=== PATIENT | female | born 1970 | race Two or more races ===

== ENCOUNTER 2017-06-18 17:32 | Emergency (ER) | payer OTHER, MEDICAID ==
[~2017-06-18] VITALS: Ht 152.4 cm; Wt 74.9 kg
[2017-06-18] MEDS ORDERED: MORPHINE SULFATE 4 MG/ML, 1ML IVPush PRN (18:00)
[2017-06-18] MEDS ORDERED: SODIUM CHLORIDE FLUSH 10ML SYR IVF ONE (18:00)
[2017-06-18] MEDS ORDERED: ONDANSETRON ODT 4 MG PO ONE (18:00)
[2017-06-18 18:06] LABS: BASOPHILS # (AUTO) 0.17 x10^3/uL (0-0.1); BASOPHILS % (AUTO) 1 % (0-1); EOSINOPHILS # (AUTO) 0.26 x10^3/uL (0-0.4); EOSINOPHILS % (AUTO) 2 % (1-7); LYMPHOCYTES # (AUTO) 2.46 x10^3/uL (1-3.4); LYMPHOCYTES % (AUTO) 17 % (22-44); MD NO; MEAN CORPUSCULAR VOLUME 91.4 fL (80-100); MEAN PLATELET VOLUME 8.8 fL (7.4-10.4); MONOCYTES # (AUTO) 1.18 x10^3/uL (0.2-0.8); MONOCYTES % (AUTO) 8 % (2-9); NEUTROPHILS % (AUTO) 73 % (42-75); PLATELET COUNT 282 x10^3/uL (130-400); RED BLOOD COUNT 4.18 x10^6/uL (3.82-5.3); RED CELL DISTRIBUTION WIDTH 13.3 % (9.6-15.2)
[2017-06-18 18:07] LABS: MICROSCOPIC NOT IND
[2017-06-18 18:09] LABS: CULTURE INDICATED? NO
[2017-06-18 18:17] LABS: ALANINE AMINOTRANSFERASE 26 U/L (12-78); ALBUMIN 3.6 g/dL (3.4-5.0); ANION GAP 6 mmol/L (5-15); CALCIUM 8.6 mg/dL (8.5-10.1); CHLORIDE 110 mmol/L (98-107); CREATININE 0.78 mg/dL (0.55-1.02)
[2017-06-18 18:19] LABS: ALKALINE PHOSPHATASE 96 U/L (45-117); BILIRUBIN,TOTAL 0.3 mg/dL (0.2-1.0); TOTAL PROTEIN 7.5 g/dL (6.4-8.2)
[2017-06-18] MEDS ORDERED: CIPROFLOXACIN 500 MG TABLET PO ONE (20:00)
[2017-06-18] MEDS ORDERED: METRONIDAZOLE PMX 500MG/100ML 100 ML IVPB ONE (20:00)
[2017-06-18] MEDS ORDERED: CIPROFLOXACIN 500 MG TABLET ONE (20:12)
[2017-06-18] MEDS ORDERED: METRONIDAZOLE PMX 500MG/100ML 100 ML ONE (20:12)
[2017-06-18] MEDS ORDERED: OMNIPAQUE 350 MG/ML, 100ML BOTTLE ONE (20:17)
[2017-06-18] MEDS ORDERED: MORPHINE SULFATE 4 MG/ML, 1ML ONE (20:23)
[2017-06-18] MEDS ORDERED: ONDANSETRON ODT 4 MG ONE (20:23)
[2017-06-18 20:30] VITALS: BP 139/82
== END 2017-06-18 21:24 | disposition home or self-care (01) ==
LOC: ED 18:21
DX: K57.32 Diverticulitis of large intestine without perforation or abscess without bleeding (principal)
CPT/HCPCS: 36415; 74177; 80053; 81003; 85025; 96365; 96375; 99285; Q0162; Q9967

== ENCOUNTER 2018-07-14 08:09 | Inpatient (IN) | payer OTHER, MEDICAID ==
[~2018-07-14] VITALS: Ht 160 cm; Wt 77.0 kg
--- NOTE | 2018-07-14 08:22 | NUR ---
THIS IS A 47 YEAR OLD FEMALE WHO C/O OF RIGHT LOWER ABD PAIN. PT CRYING, STATES IT STARTED LAST NIGHT WITH NAUSEA. FAMILY AT BS.
[2018-07-14] MEDS ORDERED: MORPHINE SULFATE 4 MG/ML, 1ML ONE (08:32)
[2018-07-14] MEDS ORDERED: ONDANSETRON 2MG/ML, 2ML ONE ×2 (08:32→13:16)
[2018-07-14] MEDS ORDERED: FAMOTIDINE 20 MG/2 ML ONE (08:35)
[2018-07-14 08:46] LABS: BASOPHILS # (AUTO) 0.03 x10^3/uL (0-0.1); BASOPHILS % (AUTO) 0 % (0-1); EOSINOPHILS # (AUTO) 0.13 x10^3/uL (0-0.4); EOSINOPHILS % (AUTO) 1 % (1-7); LYMPHOCYTES # (AUTO) 2.72 x10^3/uL (1-3.4); LYMPHOCYTES % (AUTO) 24 % (22-44); MD NO; MEAN CORPUSCULAR HEMOGLOBIN 30.4 pg (27.0-34.8); MEAN CORPUSCULAR HGB CONC 33.3 g/dL (32.4-35.8); MEAN CORPUSCULAR VOLUME 91.2 fL (80-100); MEAN PLATELET VOLUME 8.8 fL (7.4-10.4); MONOCYTES # (AUTO) 0.54 x10^3/uL (0.2-0.8); MONOCYTES % (AUTO) 5 % (2-9); NEUTROPHILS # (AUTO) 8.16 x10^3/uL (1.8-6.8); NEUTROPHILS % (AUTO) 71 % (42-75); PLATELET COUNT 343 x10^3/uL (130-400); RED BLOOD COUNT 4.55 x10^6/uL (3.82-5.3); RED CELL DISTRIBUTION WIDTH 13.2 % (9.6-15.2)
--- NOTE | 2018-07-14 08:48 | NUR ---
MEDICATED PER ORDERS, CALMING DOWN, ULTRA SOUND IN ROOM. REPORT TO MICHAEL RN, PLAN OF CARE DISCUSSED
[2018-07-14] MEDS ORDERED: MORPHINE SULFATE 4 MG/ML, 1ML IVPush PRN (09:00)
[2018-07-14] MEDS ORDERED: SODIUM CHLORIDE FLUSH 10ML SYR IVF ONE (09:00)
[2018-07-14] MEDS ORDERED: ONDANSETRON 2MG/ML, 2ML IVPush ONE (09:00)
[2018-07-14] MEDS ORDERED: FAMOTIDINE 20 MG/2 ML IVP ONE (09:00)
--- NOTE | 2018-07-14 09:01 | NUR ---
ASSUMED CARE. BEDSIDE ULTRASOUND COMPLETED AND PT UP TO BATHROOM TO PROVIDE URINE SAMPLE. PT CONTINUES TO HAVE ABDOMINAL PAIN DESPITE MORPHINE.
[2018-07-14 09:11] LABS: ALANINE AMINOTRANSFERASE 35 U/L (12-78); ALBUMIN 4.4 g/dL (3.4-5.0); ANION GAP 9 mmol/L (5-15); CALCIUM 9.5 mg/dL (8.5-10.1); CHLORIDE 109 mmol/L (98-107); CREATININE 0.82 mg/dL (0.55-1.02)
[2018-07-14] MEDS ORDERED: HYDROmorphone 1 MG/ML, 1ML VIAL ONE (09:14)
[2018-07-14 09:16] LABS: ALKALINE PHOSPHATASE 114 U/L (45-117); BILIRUBIN,TOTAL 0.2 mg/dL (0.2-1.0); TOTAL PROTEIN 8.2 g/dL (6.4-8.2)
[2018-07-14] MEDS ORDERED: DIPHENHYDRAMINE 50 MG/ML, 1ML ONE (09:16)
[2018-07-14] MEDS ORDERED: PROMETHAZINE 25 MG/ML, 1ML ONE (09:16)
[2018-07-14] MEDS: HYDROmorphone 2 MG/ML, 1ML IVPush PRN ×2 (09:22→11:10)
[2018-07-14] MEDS ORDERED: PROMETHAZINE 25 MG/ML, 1ML IM ONE (09:30)
[2018-07-14] MEDS ORDERED: DIPHENHYDRAMINE 50 MG/ML, 1ML IVPush ONE (09:30)
--- NOTE | 2018-07-14 09:31 | NUR ---
PT WRETCHING, MOANING WITH PAIN AND RUBBING STOMACH. ADDITIONAL ORDERS RECEIVED IN ATTEMPT TO MAKE PT MORE COMFORTABLE AND MANAGE PAIN.
[2018-07-14 09:52] LABS: MICROSCOPIC AUTO
[2018-07-14 09:53] LABS: CULTURE INDICATED? NO
--- NOTE | 2018-07-14 10:21 | NUR ---
PT NO LONGER MOANING. STATES SHE FEELS DROWSY BUT FEELS 9/10 RUQ PAIN. AWARE OF INTENT TO ADMIT. 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
--- NOTE | 2018-07-14 10:38 | NUR ---
REPORT TO SOURAV CUMMINGS. PT TO BE TRANSPORTED
--- NOTE | 2018-07-14 10:46 | NUR ---
TALKING WITH PT ABOUT CHOLECYSTECOMY
[2018-07-14] MEDS ORDERED: MIDAZOLAM 1 MG/ML, 2ML ONE (13:05)
[2018-07-14] MEDS ORDERED: FENTANYL PF 250 MCG/5ML ONE (13:06)
[2018-07-14] MEDS ORDERED: SUCCINYLCHOLINE 20 MG/ML, 10ML ONE (13:16)
[2018-07-14] MEDS ORDERED: PROPOFOL 10 MG/ML, 20ML ONE (13:16)
[2018-07-14] MEDS ORDERED: CEFAZOLIN 1,000 MG ONE (13:16)
[2018-07-14] MEDS ORDERED: GLYCOPYRROLATE 0.2MG/1ML, 5ML ONE (13:16)
[2018-07-14] MEDS ORDERED: ROCURONIUM 10MG/ML,5ML ONE (13:16)
[2018-07-14] MEDS ORDERED: NEOSTIGMINE 1 MG/ML, 10ML ONE (13:16)
[2018-07-14] MEDS ORDERED: DEXAMETHASONE 4 MG/ML, 1ML ONE (13:16)
[2018-07-14] MEDS ORDERED: BUPIVACAINE/EPI 0.5% 1:200K ONE (13:21)
[2018-07-14] MEDS ORDERED: SUGAMMADEX 200 MG/2 ML IVPush ONE (14:47)
[2018-07-14] MEDS ORDERED: OXYcodone 5 MG/5 ML ORAL.SOL UDC PO PRN (15:00)
[2018-07-14] MEDS ORDERED: ONDANSETRON 2MG/ML, 2ML IV PRN (15:00)
[2018-07-14] MEDS ORDERED: ONDANSETRON ODT 8 MG PO PRN (15:00)
[2018-07-14] MEDS ORDERED: LORazepam 2 MG/ML, 1ML IVPush PRN (15:00)
[2018-07-14] MEDS ORDERED: HYDROmorphone 2 MG/ML, 1ML IVPush PRN (15:00)
[2018-07-14] MEDS ORDERED: ACETAMINOPHEN 325 MG TABLET PO PRN ×2 (15:00→16:30)
[2018-07-14] MEDS ORDERED: PROMETHAZINE 25 MG/ML, 1ML IV PRN (15:00)
[2018-07-14] MEDS: FENTANYL PF 100 MCG/2ML IV PRN ×2 (15:38→15:57)
[2018-07-14] MEDS ORDERED: DIPHENHYDRAMINE 25 MG CAPSULE PO PRN (16:30)
[2018-07-14] MEDS ORDERED: DIPHENHYDRAMINE 50 MG/ML, 1ML IV PRN (16:30)
[2018-07-14] MEDS ORDERED: ACETAMINOPHEN 650 MG SUPP PR PRN (16:30)
[2018-07-14] MEDS ORDERED: hydrALAzine 20 MG/ML, 1ML IV PRN (16:30)
[2018-07-14] MEDS ORDERED: morphine SULFATE 10 MG/ML, 1ML IV PRN (16:30)
[2018-07-14] MEDS: ENOXAPARIN 40 MG/0.4 ML SQ SCH (18:48)
[2018-07-14] MEDS: HYDROcodone/APAP 5/325 TABLET PO PRN (18:48)
[2018-07-14] MEDS: KETOROLAC 30 MG/1 ML IV PRN ×2 (18:48→22:46)
[2018-07-14] MEDS: D5%-LACTATED RINGERS 1,000 ML IV SCH (18:49)
[2018-07-14 19:49] VITALS: BP 97/60
[2018-07-14 22:23] VITALS: BP 112/77
[2018-07-14] MEDS: SODIUM CHLORIDE FLUSH 10ML SYR IVF SCH (22:46)
[2018-07-14 23:43] VITALS: BP 102/57
[2018-07-15] MEDS: D5%-LACTATED RINGERS 1,000 ML IV SCH ×3 (02:13→17:24)
[2018-07-15] MEDS: KETOROLAC 30 MG/1 ML IV PRN ×4 (02:46→21:50)
[2018-07-15 03:42] VITALS: BP 97/63
[2018-07-15 05:18] LABS: BASOPHILS # (AUTO) 0.02 x10^3/uL (0-0.1); BASOPHILS % (AUTO) 0 % (0-1); EOSINOPHILS % (AUTO) 0 % (1-7); LYMPHOCYTES # (AUTO) 1.14 x10^3/uL (1-3.4); LYMPHOCYTES % (AUTO) 9 % (22-44); MD NO; MEAN CORPUSCULAR HEMOGLOBIN 31.1 pg (27.0-34.8); MEAN CORPUSCULAR HGB CONC 33.3 g/dL (32.4-35.8); MEAN CORPUSCULAR VOLUME 93.2 fL (80-100); MEAN PLATELET VOLUME 9.3 fL (7.4-10.4); MONOCYTES # (AUTO) 0.76 x10^3/uL (0.2-0.8); MONOCYTES % (AUTO) 6 % (2-9); NEUTROPHILS % (AUTO) 85 % (42-75); PLATELET COUNT 269 x10^3/uL (130-400); RED BLOOD COUNT 3.71 x10^6/uL (3.82-5.3); RED CELL DISTRIBUTION WIDTH 13.4 % (9.6-15.2)
[2018-07-15 05:20] LABS: ALBUMIN 3.2 g/dL (3.4-5.0); ANION GAP 9 mmol/L (5-15); CALCIUM 8.7 mg/dL (8.5-10.1); CHLORIDE 106 mmol/L (98-107)
[2018-07-15 05:25] LABS: ALANINE AMINOTRANSFERASE 99 U/L (12-78); ALKALINE PHOSPHATASE 75 U/L (45-117); BILIRUBIN,TOTAL 0.4 mg/dL (0.2-1.0); CREATININE 0.73 mg/dL (0.55-1.02); TOTAL PROTEIN 6.3 g/dL (6.4-8.2)
[2018-07-15] MEDS: HYDROcodone/APAP 5/325 TABLET PO PRN ×5 (06:24→23:18)
[2018-07-15] MEDS: ONDANSETRON 2MG/ML, 2ML IV PRN ×2 (06:24→18:14)
[2018-07-15 07:40] VITALS: BP 88/53
[2018-07-15] MEDS: SODIUM CHLORIDE FLUSH 10ML SYR IVF SCH ×2 (08:49→21:50)
[2018-07-15 13:24] VITALS: BP 100/62
[2018-07-15] MEDS ORDERED: HYDR-3240 PO (16:12)
[2018-07-15] MEDS ORDERED: DOCU-131 PO (16:13)
[2018-07-15] MEDS ORDERED: ONDA4TAB7 PO (16:13)
[2018-07-15] MEDS: ENOXAPARIN 40 MG/0.4 ML SQ SCH (17:25)
[2018-07-15 18:57] VITALS: BP 117/73
[2018-07-16] MEDS: D5%-LACTATED RINGERS 1,000 ML IV SCH ×3 (00:53→17:00)
[2018-07-16] MEDS: ONDANSETRON 2MG/ML, 2ML IV PRN (00:54)
[2018-07-16 01:21] VITALS: BP 97/63
[2018-07-16] MEDS: HYDROcodone/APAP 5/325 TABLET PO PRN ×4 (03:12→17:45)
[2018-07-16] MEDS: KETOROLAC 30 MG/1 ML IV PRN (06:11)
[2018-07-16] MEDS: SODIUM CHLORIDE FLUSH 10ML SYR IVF SCH (08:14)
[2018-07-16 09:30] VITALS: BP 100/64
[2018-07-16 14:58] VITALS: BP 107/71
[2018-07-16 17:42] VITALS: BP 117/76
[2018-07-16] MEDS: ENOXAPARIN 40 MG/0.4 ML SQ SCH (18:00)
== END 2018-07-16 18:23 | disposition home or self-care (01) | DRG 419 ==
LOC: ED 09:47 → EDIP 09:55 → 4NOR 11:04
PROVIDERS: ADMIT Surgery; ATTEND Surgery
PROC: 0FT44ZZ Resection of Gallbladder, Percutaneous Endoscopic Approach (ICD-10-PCS; principal; 2018-07-14 13:00)
DX: K80.62 Calculus of gallbladder and bile duct with acute cholecystitis without obstruction (principal); Z88.8 Allergy status to other drugs, medicaments and biological substances
CPT/HCPCS: 36415; 99285; J3490; J7121; 71045; 76700; 80053; 81001; 83690; 84703; 85025; 88304; 93005; 96372; 96374; 96375; G0378; J0690; J1100; J1170; J1650; J1885; J2250; J2405; J2550; J2704; J2710; J3010; J0330; J1200

== ENCOUNTER 2018-07-31 16:43 | Emergency (ER) | payer OTHER, MEDICAID ==
[~2018-07-31] VITALS: Ht 160 cm; Wt 72.7 kg
[~2018-07-31 16:43] MED LIST: DOCU-131 PO; HYDR-3240 PO; ONDA4TAB7 PO
--- NOTE | 2018-07-31 16:55 | NUR ---
Pt wheeled to room with EDT.
--- NOTE | 2018-07-31 17:10 | NUR ---
Dr. Haywood at bedside to evaluate pt. Pt c/o headache with photophobia, sore throat, fever, pain all over since yesterday. Pt also states that she's been confused at night. Hx of brigitte on 07/14.
--- NOTE | 2018-07-31 17:14 | NUR ---
Lab at bedside.
--- NOTE | 2018-07-31 17:23 | NUR ---
PIV started and 2nd set of BCs drawn.
[2018-07-31] MEDS ORDERED: PROCHLORPERAZINE 5 MG/ML, 2ML ONE (17:24)
[2018-07-31] MEDS ORDERED: DIPHENHYDRAMINE 50 MG/ML, 1ML ONE (17:25)
[2018-07-31 17:37] LABS: BASOPHILS # (AUTO) 0.03 x10^3/uL (0-0.1); BASOPHILS % (AUTO) 0 % (0-1); EOSINOPHILS # (AUTO) 0.17 x10^3/uL (0-0.4); EOSINOPHILS % (AUTO) 1 % (1-7); LYMPHOCYTES # (AUTO) 1.49 x10^3/uL (1-3.4); LYMPHOCYTES % (AUTO) 10 % (22-44); MD NO; MEAN CORPUSCULAR HEMOGLOBIN 31.4 pg (27.0-34.8); MEAN CORPUSCULAR HGB CONC 34.3 g/dL (32.4-35.8); MEAN CORPUSCULAR VOLUME 91.7 fL (80-100); MEAN PLATELET VOLUME 8.6 fL (7.4-10.4); MONOCYTES # (AUTO) 0.56 x10^3/uL (0.2-0.8); MONOCYTES % (AUTO) 4 % (2-9); NEUTROPHILS # (AUTO) 12.96 x10^3/uL (1.8-6.8); NEUTROPHILS % (AUTO) 85 % (42-75); PLATELET COUNT 345 x10^3/uL (130-400); RED BLOOD COUNT 4.47 x10^6/uL (3.82-5.3); RED CELL DISTRIBUTION WIDTH 13.1 % (9.6-15.2)
[2018-07-31 17:47] LABS: ALANINE AMINOTRANSFERASE 44 U/L (12-78); ANION GAP 8 mmol/L (5-15); CALCIUM 9.4 mg/dL (8.5-10.1); CHLORIDE 106 mmol/L (98-107); CREATININE 0.76 mg/dL (0.55-1.02); INTERNATIONAL NORMALIZED RATIO 0.98 (0.93-1.1); PROTHROMBIN TIME 10.3 Seconds (9.6-11.5)
[2018-07-31 17:49] LABS: ALKALINE PHOSPHATASE 118 U/L (45-117); BILIRUBIN,TOTAL 0.4 mg/dL (0.2-1.0); TOTAL PROTEIN 8.2 g/dL (6.4-8.2)
[2018-07-31] MEDS ORDERED: IBUP-1223 PO (17:49)
[2018-07-31] MEDS ORDERED: vitamin e PO (17:49)
[2018-07-31] MEDS ORDERED: LIDOCAINE-MPF 1%, 5ML INFIL ONE (18:00)
[2018-07-31] MEDS ORDERED: LIDOCAINE-MPF 1%, 5ML ONE (18:11)
--- NOTE | 2018-07-31 18:14 | NUR ---
EDT and student at bedside for LP setup. Afua SIMPSON, made aware that pt is ready.
--- NOTE | 2018-07-31 18:42 | NUR ---
LP in progress, EDT at bedside for assistance.
[2018-07-31] MEDS ORDERED: DIPHENHYDRAMINE 12.5MG/5ML, 10ML UDC PO ONE (19:30)
[2018-07-31] MEDS ORDERED: PROCHLORPERAZINE 5 MG/ML, 2ML IM ONE (19:30)
[2018-07-31] MEDS ORDERED: METOCLOPRAMIDE 5 MG/ML, 2ML IVPush ONE (19:30)
[2018-07-31 19:35] LABS: GLUCOSE, CSF 61 mg/dL (40-80); TOTAL PROTEIN,CSF 27 mg/dL (15-45)
--- NOTE | 2018-07-31 19:53 | NUR ---
Pt ambulated to bathroom, urine sample requested.
--- NOTE | 2018-07-31 20:00 | NUR ---
Urine sample collected and sent to lab. Pt requesting pain medication for CASTAÑEDA and generalized body pain, same pain as prior to LP.
[2018-07-31 20:22] LABS: MICROSCOPIC NOT IND
--- NOTE | 2018-07-31 20:25 | NUR ---
Dr. Haywood at bedside to update pt and son on ED findings and POC.
[2018-07-31 20:29] LABS: CULTURE INDICATED? NO
--- NOTE | 2018-07-31 20:30 | NUR ---
Pharmacy slip sent for ABX.
[2018-07-31] MEDS ORDERED: ACETAMINOPHEN 500 MG TABLET ONE (20:34)
[2018-07-31] MEDS ORDERED: BICILLIN-LA 1,200,000 UNITS/2 ML IM ONE (21:00)
[2018-07-31] MEDS ORDERED: ACETAMINOPHEN 500 MG TABLET PO ONE (21:00)
[2018-07-31 21:07] VITALS: BP 105/71
--- NOTE | 2018-07-31 21:07 | NUR ---
Pt medicated per MAR. IV d/c'd with tip intact, pt changing into clothing.
--- NOTE | 2018-07-31 21:24 | NUR ---
Patient/Caregiver given discharge instructions and they have confirmed that they understand the instructions. Patient ambulatory with steady gait.
== END 2018-07-31 21:25 | disposition home or self-care (01) ==
LOC: ED 17:08
DX: R50.9 Fever, unspecified (principal); R51 Headache; M79.10 Myalgia, unspecified site
CPT/HCPCS: 36415; 62270; 80053; 81003; 82945; 83690; 84145; 84157; 85025; 85610; 85730; 87040; 87070; 87205; 87252; 89051; 96372; 99284; J0561; J0780

== ENCOUNTER 2019-04-04 00:24 | Inpatient (IN) | payer OTHER, MEDICAID ==
[~2019-04-04] VITALS: Ht 152.4 cm; Wt 78.1 kg
[~2019-04-04 00:24] MED LIST changes: +IBUP-1223 PO; +vitamin e PO
[2019-04-04] MEDS ORDERED: MORPHINE SULFATE 4 MG/ML, 1ML ONE (00:50)
[2019-04-04] MEDS ORDERED: ONDANSETRON 2MG/ML, 2ML ONE (00:50)
--- NOTE | 2019-04-04 00:50 | NUR ---
THIS IS A 48Y F THAT COMES IN W/ C/O LEFT ABD/ FLANK PAIN STARTING YESTERDAY. PT HAS HX OF DIVERTICULITIS AND STS THIS FEELS THE SAME THAT. PT DENIES RECENT TRAUMA TO THE AREA. PT CONNECTED TO MONITORING, BRI.
[2019-04-04 00:56] LABS: MEAN CORPUSCULAR HEMOGLOBIN 31.6 pg (27.0-34.8); MEAN CORPUSCULAR HGB CONC 33.3 g/dL (32.4-35.8); MEAN CORPUSCULAR VOLUME 94.8 fL (80-100); MEAN PLATELET VOLUME 8.9 fL (7.4-10.4); PLATELET COUNT 336 x10^3/uL (130-400); RED BLOOD COUNT 4.48 x10^6/uL (3.82-5.3); RED CELL DISTRIBUTION WIDTH 13.6 % (9.6-15.2)
[2019-04-04] MEDS ORDERED: ONDANSETRON 2MG/ML, 2ML IVPush ONE (01:00)
[2019-04-04] MEDS ORDERED: SODIUM CHLORIDE 0.9% 1,000ML IVBOLUS ONE ×2 (01:00→01:30)
[2019-04-04] MEDS ORDERED: SODIUM CHLORIDE FLUSH 10ML SYR IVF ONE (01:00)
[2019-04-04] MEDS ORDERED: MORPHINE SULFATE 4 MG/ML, 1ML IVPush PRN (01:00)
[2019-04-04 01:09] LABS: ALANINE AMINOTRANSFERASE 53 U/L (12-78); ANION GAP 9 mmol/L (5-15); CALCIUM 9.5 mg/dL (8.5-10.1); CHLORIDE 108 mmol/L (98-107); CREATININE 1.12 mg/dL (0.55-1.02)
--- NOTE | 2019-04-04 01:10 | NUR ---
PT UP TO RESTROOM FOR URINE SAMPLE, EDUCATED ON CLEAN CATCH.
[2019-04-04 01:13] LABS: ALKALINE PHOSPHATASE 120 U/L (45-117); BASOPHILS # (AUTO) 0.06 x10^3/uL (0-0.1); BASOPHILS % (AUTO) 0 % (0-1); BILIRUBIN,TOTAL 0.3 mg/dL (0.2-1.0); EOSINOPHILS % (AUTO) 2 % (1-7); LYMPHOCYTES # (AUTO) 3.23 x10^3/uL (1-3.4); LYMPHOCYTES % (AUTO) 17 % (22-44); MD SCAN; MONOCYTES % (AUTO) 6 % (2-9); NEUTROPHILS # (AUTO) 14.36 x10^3/uL (1.8-6.8); NEUTROPHILS % (AUTO) 75 % (42-75); TOTAL PROTEIN 8.3 g/dL (6.4-8.2)
[2019-04-04] MEDS ORDERED: HYDROmorphone 1 MG/ML, 1ML INJ ONE ×2 (01:26→02:32)
[2019-04-04] MEDS ORDERED: LEVOFLOXACIN/PMX 750MG/150ML 150 ML IV ONE (01:30)
[2019-04-04] MEDS ORDERED: HYDROmorphone 1 MG/ML, 1ML INJ IV ONE ×2 (01:30→02:30)
[2019-04-04] MEDS ORDERED: METRONIDAZOLE PMX 500MG/100ML 100 ML IV ONE (01:30)
--- NOTE | 2019-04-04 01:40 | NUR ---
Break RN: IV access obtained by Livan CUMMINGS. Pt states "I have fragile veins and that IV hurts really bad." IV fluids infusing freely. Flushes well with good blood return. No s/s of infiltration. Attempting to medicate pt--pt refusing morphine. States "it made me too hot, and my head hurt, and it made my nose bleed." Pt states last time she received dilaudid. Discussed with ERP and order changed. Pt medicated per MAY for 10/[address] and aware pt is ready. Report to livier Rothman RN.
--- NOTE | 2019-04-04 01:45 | NUR ---
PT TO CT AT THIS TIME
[2019-04-04 02:00] LABS: MICROSCOPIC AUTO
[2019-04-04 02:03] LABS: CULTURE INDICATED? NO
[2019-04-04] MEDS ORDERED: METRONIDAZOLE PMX 500MG/100ML 100 ML ONE (02:05)
--- NOTE | 2019-04-04 02:09 | NUR ---
PT BACK FROM CT, ABX STARTED, CULTURES DRAWN PRIOR TO ABX START.
--- NOTE | 2019-04-04 02:21 | NUR ---
HOSPITALIST AT BEDSIDE TO ADMIT PT
[2019-04-04] MEDS ORDERED: ONDANSETRON 2MG/ML, 2ML IVPush PRN (02:30)
[2019-04-04] MEDS ORDERED: ONDANSETRON ODT 4 MG PO PRN (02:30)
[2019-04-04] MEDS ORDERED: hydrALAzine 20 MG/ML, 1ML IVPush PRN (02:30)
[2019-04-04] MEDS ORDERED: KETOROLAC 30 MG/1 ML IVPush ONE (02:30)
[2019-04-04] MEDS ORDERED: PROMETHAZINE 25 MG/ML, 1ML IM PRN (02:30)
[2019-04-04] MEDS ORDERED: ACETAMINOPHEN 325 MG TABLET PO PRN (02:30)
[2019-04-04] MEDS ORDERED: HYDROcodone/APAP 5/325 TABLET PO PRN (02:30)
[2019-04-04] MEDS ORDERED: morphine SULFATE 10 MG/ML, 1ML IVPush PRN (02:30)
--- NOTE | 2019-04-04 02:30 | NUR ---
REPORT CALLED TO FLOOR EMILIANO MARCUS ALL QUESTIONS ADDRESSED AT THIS TIME.
[2019-04-04] MEDS ORDERED: KETOROLAC 30 MG/1 ML ONE (02:31)
[2019-04-04 02:46] LABS: HCT (SEDRATE) 42.5 % (34.6-47.8)
[2019-04-04 02:52] VITALS: BP 98/64
[2019-04-04 03:07] LABS: C-REACTIVE PROTEIN, QUANT 1.9 mg/dL (0.02-0.49); FREE T4 (FREE THYROXINE) 1.04 ng/dL (0.76-1.46)
[2019-04-04] MEDS: PIPERACILLIN/TAZO/PMX 3.375GM 50 ML IV SCH ×4 (04:12→22:17)
[2019-04-04] MEDS: D5%-0.9% NACL 1,000 ML IV SCH ×2 (04:52→13:44)
[2019-04-04 07:36] VITALS: BP 96/62
[2019-04-04] MEDS: HYDROmorphone 2 MG/ML, 1ML IV PRN ×4 (10:10→17:51)
[2019-04-04 14:19] VITALS: BP 116/76
[2019-04-04] MEDS: D5%-LACTATED RINGERS 1,000 ML IV SCH (18:06)
[2019-04-04 19:43] VITALS: BP 114/77
[2019-04-05] MEDS: D5%-LACTATED RINGERS 1,000 ML IV SCH (01:53)
[2019-04-05 02:10] VITALS: BP 107/70
[2019-04-05] MEDS: PIPERACILLIN/TAZO/PMX 3.375GM 50 ML IV SCH ×4 (04:30→23:17)
[2019-04-05 06:08] LABS: ALANINE AMINOTRANSFERASE 102 U/L (12-78); ALBUMIN 2.8 g/dL (3.4-5.0); ANION GAP 6 mmol/L (5-15); CALCIUM 8.4 mg/dL (8.5-10.1); CHLORIDE 112 mmol/L (98-107); CHOLESTEROL, TOTAL 126 mg/dL (140-239); CREATININE 0.53 mg/dL (0.55-1.02); TRIGLYCERIDES 121 mg/dL (50-200); VLDL CHOLESTEROL 24 mg/dL (0-25)
[2019-04-05 06:10] LABS: ALKALINE PHOSPHATASE 80 U/L (45-117); BILIRUBIN,TOTAL 0.7 mg/dL (0.2-1.0); CHOL/HDL RATIO 2.9; HDL CHOL % 35 % (28-40); HDL CHOLESTEROL (DIRECT) 44 mg/dL (40-60); LDL CHOLESTEROL,CALCULATED 58 mg/dL (54-169); LDL/HDL RATIO 1.3 (0.5-3.0)
[2019-04-05 06:27] LABS: BASOPHILS # (AUTO) 0.04 x10^3/uL (0-0.1); BASOPHILS % (AUTO) 0 % (0-1); EOSINOPHILS % (AUTO) 3 % (1-7); LYMPHOCYTES # (AUTO) 2.68 x10^3/uL (1-3.4); LYMPHOCYTES % (AUTO) 28 % (22-44); MD NO; MEAN CORPUSCULAR HGB CONC 33.2 g/dL (32.4-35.8); MEAN CORPUSCULAR VOLUME 96.2 fL (80-100); MEAN PLATELET VOLUME 9.6 fL (7.4-10.4); MONOCYTES % (AUTO) 6 % (2-9); NEUTROPHILS % (AUTO) 62 % (42-75); PLATELET COUNT 239 x10^3/uL (130-400); RED BLOOD COUNT 3.58 x10^6/uL (3.82-5.3); RED CELL DISTRIBUTION WIDTH 13.6 % (9.6-15.2)
[2019-04-05 07:35] VITALS: BP 96/66
[2019-04-05 09:07] LABS: SALICYLATE LEVEL < 1.7 mg/dL (2.8-20.0)
[2019-04-05] MEDS: OXYcodone 5 MG/5 ML ORAL.SOL UDC PO PRN ×3 (09:10→23:24)
[2019-04-05 12:36] VITALS: BP 108/66
[2019-04-05] MEDS: LACTATED RINGERS 1,000 ML IV SCH (18:40)
[2019-04-05 19:28] VITALS: BP 113/68
[2019-04-06 02:53] VITALS: BP 123/57
[2019-04-06] MEDS: LACTATED RINGERS 1,000 ML IV SCH (02:56)
[2019-04-06] MEDS: PIPERACILLIN/TAZO/PMX 3.375GM 50 ML IV SCH ×4 (05:30→23:30)
[2019-04-06 05:33] LABS: BASOPHILS # (AUTO) 0.02 x10^3/uL (0-0.1); BASOPHILS % (AUTO) 0 % (0-1); EOSINOPHILS # (AUTO) 0.34 x10^3/uL (0-0.4); EOSINOPHILS % (AUTO) 4 % (1-7); LYMPHOCYTES # (AUTO) 3.14 x10^3/uL (1-3.4); LYMPHOCYTES % (AUTO) 40 % (22-44); MD NO; MEAN CORPUSCULAR HEMOGLOBIN 31.7 pg (27.0-34.8); MEAN CORPUSCULAR HGB CONC 33.1 g/dL (32.4-35.8); MEAN CORPUSCULAR VOLUME 95.6 fL (80-100); MEAN PLATELET VOLUME 9.3 fL (7.4-10.4); MONOCYTES # (AUTO) 0.51 x10^3/uL (0.2-0.8); MONOCYTES % (AUTO) 7 % (2-9); NEUTROPHILS % (AUTO) 49 % (42-75); PLATELET COUNT 255 x10^3/uL (130-400); RED BLOOD COUNT 3.62 x10^6/uL (3.82-5.3); RED CELL DISTRIBUTION WIDTH 13.4 % (9.6-15.2)
[2019-04-06 05:38] LABS: CHLORIDE 111 mmol/L (98-107)
[2019-04-06 05:46] LABS: ALANINE AMINOTRANSFERASE 98 U/L (12-78); ALBUMIN 2.8 g/dL (3.4-5.0); ALKALINE PHOSPHATASE 90 U/L (45-117); ANION GAP 5 mmol/L (5-15); BILIRUBIN,TOTAL 0.5 mg/dL (0.2-1.0); CALCIUM 8.8 mg/dL (8.5-10.1); CREATININE 0.74 mg/dL (0.55-1.02); TOTAL PROTEIN 6.2 g/dL (6.4-8.2)
[2019-04-06 07:07] VITALS: BP 100/65
[2019-04-06] MEDS ORDERED: OMNIPAQUE 350 MG/ML, 100ML BOTTLE ONE (11:20)
[2019-04-06] MEDS: OXYcodone 5 MG/5 ML ORAL.SOL UDC PO PRN ×2 (11:46→19:37)
[2019-04-06 13:58] VITALS: BP 107/70
[2019-04-06 20:19] VITALS: BP 103/65
[2019-04-07 03:51] VITALS: BP 104/69
[2019-04-07] MEDS: OXYcodone 5 MG/5 ML ORAL.SOL UDC PO PRN ×3 (04:54→19:06)
[2019-04-07] MEDS: PIPERACILLIN/TAZO/PMX 3.375GM 50 ML IV SCH (04:54)
[2019-04-07 05:09] LABS: BASOPHILS # (AUTO) 0.04 x10^3/uL (0-0.1); BASOPHILS % (AUTO) 1 % (0-1); EOSINOPHILS # (AUTO) 0.35 x10^3/uL (0-0.4); EOSINOPHILS % (AUTO) 5 % (1-7); LYMPHOCYTES # (AUTO) 3.05 x10^3/uL (1-3.4); LYMPHOCYTES % (AUTO) 42 % (22-44); MD NO; MEAN CORPUSCULAR HEMOGLOBIN 31.4 pg (27.0-34.8); MEAN CORPUSCULAR HGB CONC 32.8 g/dL (32.4-35.8); MEAN CORPUSCULAR VOLUME 95.8 fL (80-100); MEAN PLATELET VOLUME 8.6 fL (7.4-10.4); MONOCYTES # (AUTO) 0.49 x10^3/uL (0.2-0.8); MONOCYTES % (AUTO) 7 % (2-9); NEUTROPHILS # (AUTO) 3.36 x10^3/uL (1.8-6.8); NEUTROPHILS % (AUTO) 46 % (42-75); PLATELET COUNT 312 x10^3/uL (130-400); RED BLOOD COUNT 4.03 x10^6/uL (3.82-5.3); RED CELL DISTRIBUTION WIDTH 13.3 % (9.6-15.2)
[2019-04-07 05:15] LABS: ALANINE AMINOTRANSFERASE 88 U/L (12-78); ALBUMIN 3.2 g/dL (3.4-5.0); ANION GAP 6 mmol/L (5-15); CALCIUM 8.7 mg/dL (8.5-10.1); CHLORIDE 110 mmol/L (98-107); CREATININE 0.82 mg/dL (0.55-1.02)
[2019-04-07 05:17] LABS: ALKALINE PHOSPHATASE 102 U/L (45-117); BILIRUBIN,TOTAL 0.5 mg/dL (0.2-1.0); TOTAL PROTEIN 6.9 g/dL (6.4-8.2)
[2019-04-07 07:21] VITALS: BP 119/66
[2019-04-07] MEDS: CEFTRIAXONE PMX 2GM/50ML 50 ML IV SCH (08:44)
[2019-04-07] MEDS: METRONIDAZOLE PMX 500MG/100ML 100 ML IV SCH ×3 (09:21→23:34)
[2019-04-07 15:00] VITALS: BP 125/73
[2019-04-07 20:55] VITALS: BP 129/85
[2019-04-08 00:44] VITALS: BP 129/77
[2019-04-08] MEDS ORDERED: METR500T PO (06:45)
[2019-04-08] MEDS: CEFTRIAXONE PMX 2GM/50ML 50 ML IV SCH (07:50)
[2019-04-08] MEDS: OXYcodone 5 MG/5 ML ORAL.SOL UDC PO PRN (07:57)
[2019-04-08] MEDS: METRONIDAZOLE PMX 500MG/100ML 100 ML IV SCH (08:28)
[2019-04-08] MEDS ORDERED: BISACODYL 5 MG EC TABLET PO SCH (09:00)
[2019-04-08 09:22] VITALS: BP 126/75
[2019-04-09] MEDS ORDERED: CIPR500T87 PO (16:18)
== END 2019-04-08 13:30 | disposition home or self-care (01) | DRG 871 ==
LOC: ED 02:18 → EDIP 02:32 → 3N 02:53 → DCLOUNGE 04-08 13:18
PROVIDERS: ADMIT Internal Medicine; ATTEND Internal Medicine
DX: A41.9 Sepsis, unspecified organism (principal); N17.0 Acute kidney failure with tubular necrosis; K57.32 Diverticulitis of large intestine without perforation or abscess without bleeding; E55.9 Vitamin D deficiency, unspecified; E86.0 Dehydration; K76.0 Fatty (change of) liver, not elsewhere classified; Z53.20 Procedure and treatment not carried out because of patient's decision for unspecified reasons; Z80.0 Family history of malignant neoplasm of digestive organs; Z86.19 Personal history of other infectious and parasitic diseases; Z90.710 Acquired absence of both cervix and uterus; Z88.8 Allergy status to other drugs, medicaments and biological substances
CPT/HCPCS: 36415; 84145; 96361; 96374; 96375; 99285; J7042; J7121; 74177; 76700; 80053; 80061; 80074; 80307; 81001; 83036; 83605; 83735; 84100; 84439; 84443; 84703; 85025; 85651; 86140; 87040; G0378; J0696; J1170; J1885; J2405; J2543; Q9967; J2270; J7030; J7120